=== PATIENT | female | born 1995 | race Two or more races ===

== ENCOUNTER 2021-05-06 16:54 | Emergency (ER) | payer OTHER ==
[~2021-05-06] VITALS: Ht 149.9 cm; Wt 50.0 kg
[2021-05-06] MEDS ORDERED: ACETAMINOPHEN 500 MG TABLET PO ONE (20:45)
[2021-05-06] MEDS ORDERED: IV NORMAL SALINE 1000ML BAG 1,000 ML IV ONE (20:45)
[2021-05-06 21:05] LABS: BILIRUBIN,URINE SMALL (NEG); CLARITY,URINE CLEAR; COLOR,URINE YELLOW
[2021-05-06 21:06] LABS: NITRITE,URINE NEGATIVE (NEG); PH,URINE 8.5 (<5.0-8.0); PROTEIN,URINE 30 mg/dL (NEG-TRACE)
[2021-05-06 21:08] LABS: BACTERIA,URINE 0 /HPF (0-FEW)
[2021-05-06 21:11] LABS: BASO % 0 % (0-3); EOS % 0 % (0-3); HEMOGLOBIN 14.4 g/dL (12.0-15.5); LYMPH % 9 % (24-48); MEAN CORPUSCULAR HEMOGLOBIN 30 pg (25-35); MEAN CORPUSCULAR HGB CONC 34 g/dL (31-37); MEAN CORPUSCULAR VOLUME 89 fL (79-100); MONO # 0.4 x10^3/uL (0.0-1.1); MONO % 4 % (0-9); NEUT # 10.2 x10^3/uL (1.8-7.7); NEUT % 87 % (31-73); PLATELET COUNT 197 x10^3/uL (140-400); RED BLOOD COUNT 4.73 x10^6/uL (3.50-5.40); RED CELL DISTRIBUTION WIDTH 12.4 % (11.5-14.5); WHITE BLOOD COUNT 11.7 x10^3/uL (4.0-11.0)
[2021-05-06 21:20] LABS: CALCIUM 9.2 mg/dL (8.5-10.1); CREATININE 0.8 mg/dL (0.6-1.0); GFR 88.1; POTASSIUM 3.4 mmol/L (3.5-5.1)
[2021-05-06 21:26] LABS: ALBUMIN 4.4 g/dL (3.4-5.0); TOTAL BILIRUBIN 2.8 mg/dL (0.2-1.0); TOTAL PROTEIN 8.6 g/dL (6.4-8.2)
--- NOTE | 2021-05-06 21:37 | PHYS DOC ---
Past Medical History Past Surgical History: No Surgical History (ESTEVANWOODROW Jackson BLOCK PILER) Smoking Status: Never Smoker Alcohol Use: Rarely (ESTEVANWOODROW Jackson BLOCK PILER) General Adult EDM: Chief Complaint: GI PROBLEM HPI: HPI: Patient is a 25 year old female presented to the ED today complaining of 5 out of 10 epigastric abdominal pain, lower abdominal pain, pain radiates to her lower back, and diarrhea, symptoms began today. Patient reports subjective fevers. Patient denies anything specifically exacerbating or relieving her pain. She states she tried [place] with no relief. (WOODROW ANGELES Morales BLOCK PILER) Review of Systems: Review of Systems: Constitutional: Denies fever or chills. [] Eyes: Denies change in visual acuity. [] HENT: Denies nasal congestion or sore throat. [] Respiratory: Denies cough or shortness of breath. [] Cardiovascular: Denies chest pain or edema. [] GI: Reports epigastric abdominal pain, lower abdominal pain, diarrhea denies nausea, vomiting, bloody stools : Denies dysuria. [] Musculoskeletal: Reports pain radiating to her back Integument: Denies rash. [] Neurologic: Denies headache, focal weakness or sensory changes. [] Psychiatric: Denies depression or anxiety. [] (BRIDGETTEWOODROW Nielsen BLOCK PILER) Heart Score: C/O Chest Pain: N/A Risk Factors: Risk Factors: DM, Current or recent (<one month) smoker, HTN, HLP, family history of CAD, obesity. Risk Scores: Score 0 - 3: 2.5% MACE over next 6 weeks - Discharge Home Score 4 - 6: 20.3% MACE over next 6 weeks - Admit for Clinical Observation Score 7 - 10: 72.7% MACE over next 6 weeks - Early Invasive Strategies (HUMBERTOWOODROW ALCANTAR BLOCK PILER) Current Medications: Current Medications Medications (Trade) Dose Ordered Sig/Mai Start Time Stop Time Status Last Admin Dose Admin Acetaminophen (Tylenol) 1,000 mg 1X ONCE 05/06/21 20:45 05/06/21 20:46 DC 05/06/21 21:01 1,000 MG Sodium Chloride 1,000 ml @ 1,000 mls/hr 1X ONCE 05/06/21 20:45 05/06/21 21:44 05/06/21 21:00 1,000 MLS/HR (WOODROW ANGELES BLOCK PILER) Allergies: Allergies: Allergies Coded Allergies Type Severity Reaction Last Updated Verified No Known Drug Allergies 05/06/21 No (WOODROW ANGELES BLOCK PILER) Physical Exam: PE: Constitutional: Well developed, well nourished, no acute distress, non-toxic appearance. [] HENT: Normocephalic, atraumatic, bilateral external ears normal, oropharynx moist, no oral exudates, nose normal. [] Eyes: PERRLA, EOMI, conjunctiva normal, no discharge. [] Neck: Normal range of motion, no tenderness, supple, no stridor. [] Cardiovascular:Heart rate regular rhythm, no murmur [] Lungs & Thorax: Bilateral breath sounds clear to auscultation [] Abdomen: Bowel sounds normal, soft, diffuse tenderness throughout the abdomen, no masses, no pulsatile masses. [] Skin: Warm, dry, no erythema, no rash. [] Back: No tenderness, no CVA tenderness. [] Extremities: No tenderness, no cyanosis, no clubbing, ROM intact, no edema. [] Neurologic: Alert and oriented X 3, normal motor function, normal sensory function, no focal deficits noted. [] Psychologic: Affect normal, judgement normal, mood normal. [] (WOODROW ANGELES BLOCK PILER) Current Patient Data: Labs: Laboratory Tests Test 05/06/21 20:45 05/06/21 20:51 05/06/21 21:05 Urine Collection Type Unknown Urine Color Yellow Urine Clarity Clear Urine pH 8.5 (<5.0-8.0) Urine Specific [place] 1.020 (1.000-1.030) Urine Protein 30 mg/dL (NEG-TRACE) Urine Glucose (UA) Negative mg/dL (NEG) Urine Ketones (Stick) >160 mg/dL (NEG) Urine Blood Trace (NEG) Urine Nitrite Negative (NEG) Urine Bilirubin Small (NEG) Urine Urobilinogen Dipstick 1.0 mg/dL (0.2 mg/dL) Urine Leukocyte Esterase Negative (NEG) Urine RBC 3-5 /HPF (0-2) Urine WBC 1-4 /HPF (0-4) Urine Squamous Epithelial Cells Many /LPF Urine Bacteria 0 /HPF (0-FEW) Urine Mucus Marked /LPF POC Urine HCG, Qualitative Hcg negative (Negative) White Blood Count 11.7 x10^3/uL (4.0-11.0) H Red Blood Count 4.73 x10^6/uL (3.50-5.40) Hemoglobin 14.4 g/dL (12.0-15.5) Hematocrit 42.0 % (36.0-47.0) Mean Corpuscular Volume 89 fL (79-100) Mean Corpuscular Hemoglobin 30 pg (25-35) Mean Corpuscular Hemoglobin Concent 34 g/dL (31-37) Red Cell Distribution Width 12.4 % (11.5-14.5) Platelet Count 197 x10^3/uL (140-400) Neutrophils (%) (Auto) 87 % (31-73) H Lymphocytes (%) (Auto) 9 % (24-48) L Monocytes (%) (Auto) 4 % (0-9) Eosinophils (%) (Auto) 0 % (0-3) Basophils (%) (Auto) 0 % (0-3) Neutrophils # (Auto) 10.2 x10^3/uL (1.8-7.7) H Lymphocytes # (Auto) 1.0 x10^3/uL (1.0-4.8) Monocytes # (Auto) 0.4 x10^3/uL (0.0-1.1) Eosinophils # (Auto) 0.0 x10^3/uL (0.0-0.7) Basophils # (Auto) 0.0 x10^3/uL (0.0-0.2) Sodium Level 136 mmol/L (136-145) Potassium Level 3.4 mmol/L (3.5-5.1) L Chloride Level 99 mmol/L (98-107) Carbon Dioxide Level 25 mmol/L (21-32) Anion Gap 12 (6-14) Blood Urea Nitrogen 9 mg/dL (7-20) Creatinine 0.8 mg/dL (0.6-1.0) Estimated GFR (Cockcroft-Gault) 88.1 BUN/Creatinine Ratio 11 (6-20) Glucose Level 99 mg/dL (70-99) Calcium Level 9.2 mg/dL (8.5-10.1) Total Bilirubin 2.8 mg/dL (0.2-1.0) H Aspartate Amino Transferase (AST) 46 U/L (15-37) H Alanine Aminotransferase (ALT) 89 U/L (14-59) H Alkaline Phosphatase 78 U/L (46-116) Total Protein 8.6 g/dL (6.4-8.2) H Albumin 4.4 g/dL (3.4-5.0) Albumin/Globulin Ratio 1.0 (1.0-1.7) Lipase 50 U/L (73-393) L Laboratory Tests 05/06/21 21:05 Laboratory Tests 05/06/21 21:05 Vital Signs: Vital Signs Date Time Temp Pulse Resp B/P (MAP) Pulse Ox O2 Delivery O2 Flow Rate FiO2 05/06/21 21:04 84 16 121/58 (79) 100 Room Air 05/06/21 18:35 100.4 100.4 (WOODROW ANGELES BLOCK PILER) EKG: EKG: [] (WOODROW ANGELES BLOCK PILER) Radiology/Procedures: Radiology/Procedures: []PROCEDURE: CT ABD PELV W/ IV CONTRST ONLY INDICATION: Reason: abd pain;OMNI 300,75ML / Spl. Instructions: / History: COMPARISON: None. TECHNIQUE: Axial CT images were obtained through the abdomen and pelvis with intravenous contrast. One or more of the following individualized dose reduction techniques were utilized for this examination: 1. Automated exposure control; 2. Adjustment of the mA and/or kV according to patient size; 3. Use of iterative reconstruction technique. FINDINGS: Vascular: No abdominal aortic aneurysm. Hepatobiliary: Liver appears mildly low density. Nonspecific but can be seen with mild fatty infiltration. Pancreas: No peripancreatic edema. Spleen: Spleen is prominent in size. Renal/Bladder: No hydronephrosis. Gastrointestinal: Intrauterine device is seen of the uterus. Small free fluid in the pelvis. Low-density left adnexa measuring up to approximately 32 mm. Limited visualization of the appendix secondary to unopacified loops of small bowel within the right lower quadrant. No definite inflammatory changes are seen within the area. Degenerative changes of the spine with some disc protrusions and osteophyte formation. IMPRESSION: * No evidence of bowel obstruction. * Suspected low density lesion of the left adnexa which could be from a left adnexal cystic lesion. If further information is needed ultrasound could further assess. Electronically signed by: Batool Oscar MD (05/06/2021 11:19 PM) [id number] DICTATED and SIGNED BY: BATOOL OSCAR MD DATE: 05/06/21 [id number] 0 (WOODROW ANGELES APRN) Course & Med Decision Making: Course & Med Decision Making Pertinent Labs and Imaging studies reviewed. (See chart for details) This is a 25-year-old female patient presented to the ED today with complaints of diarrhea, lower abdominal pain radiating to the back, epigastric pain, symptoms began today. Also complaining of fevers Vitals on arrival to the ED temperature 100.4, heart rate 110, respiration 20 on room air, blood pressure 109/56, O2 sats 100% Negative urine hCG. CBC with a WBC of 11.7, CMP with bilirubin of 2.8, AST 46, ALT 89, UA negative for infection noted for small amount of bilirubin, >160 ketones. Patient was given IV fluids in the ED as well as Tylenol CT of the abdomen and pelvis was noted for suspected low density lesion of the left adnexa which could be from a left adnexal cystic lesion. If further information is needed ultrasound could further assess. Pelvic ultrasound as well as limited right upper quadrant ultrasound was done, ultrasound noted for left adnexal cyst otherwise no acute findings. Instructed to follow-up with OB for this. (WOODROW ANGELES APRN) Course & Med Decision Making Patients Care and treatment plan provided by ER Nurse Practitioner. I was not involved in this patients care but was available for consult. Patient's chart reviewed. (TANGELA JOHNSON DO) Estelle Disclaimer: Estelle Disclaimer: This electronic medical record was generated, in whole or in part, using a voice recognition dictation system. (WOODROW ANGELES APRN) Departure Departure Impression: Primary Impression: Abdominal pain Qualified Codes: R10.32 - Left lower quadrant pain Additional Impressions: Fever Qualified Codes: R50.9 - Fever, unspecified Pelvic cyst Diarrhea Qualified Codes: R19.7 - Diarrhea, unspecified Disposition: 01 HOME / SELF CARE / HOMELESS Condition: STABLE Referrals: NO PCP (PCP) ARTI WALKER MD follow up in one week Patient Instructions: Diarrhea, [id number], Fever, Adult Additional Instructions: You were evaluated in the emergency room for abdominal pain, you had a slight fever in the ED. Your CT of the abdomen and pelvis as well as ultrasound of the pelvis was noted for a cyst in your left pelvic region. Please follow-up with your own SCREW DOWN or the provided SCREW DOWN in one week. Please take Tylenol Motrin for pain or fever, push fluids, take the prescribed medicine for the pain in your stomach. Come back to the ED at any point symptoms worsen Scripts Loperamide Hcl (ULTRA A-D) 2 Mg Tablet 2 MG PO Q8HRS PRN for DIARRHEA, #10 TAB Prov: WOODROW ANGELES APRN 05/07/21 Dicyclomine Hcl (DICYCLOMINE HCL) 20 Mg Tablet 1 TAB PO TID, #30 TAB 1 Refill Prov: WOODROW ANGELES APRN 05/07/21 WOODROW ANGELES APRN May 06, 2021 21:37 TANGELA JOHNSON I DO May 07, 2021 18:10
[2021-05-06] MEDS ORDERED: CONTRAST GIVEN. MC PRN (21:45)
[2021-05-06] MEDS ORDERED: IOHEXOL 300 MG/ML 100ML VIAL. IV ONE (21:45)
[2021-05-06 22:36] LABS: INFLUENZA A PATIENT NEGATIVE (NEGATIVE); INFLUENZA B PATIENT NEGATIVE (NEGATIVE)
--- NOTE | 2021-05-06 23:21 | RAD ---
INDICATION: Reason: abd pain;OMNI 300,75ML / Spl. Instructions: / History: COMPARISON: None. TECHNIQUE: Axial CT images were obtained through the abdomen and pelvis with intravenous contrast. One or more of the following individualized dose reduction techniques were utilized for this examinat ion: 1. Automated exposure control; 2. Adjustment of the mA and/or kV according to patient size; 3 . Use of iterative reconstruction technique. FINDINGS: Vascular: No abdominal aortic aneurysm. Hepatobiliary: Liver appears mildly low density. Nonspecific but can be seen with mild fatty infiltra tion. Pancreas: No peripancreatic edema. Spleen: Spleen is prominent in size. Renal/Bladder: No hydronephrosis. Gastrointestinal: Intrauterine device is seen of the uterus. Small free fluid in the pelvis. Low-dens ity left adnexa measuring up to approximately 32 mm. Limited visualization of the appendix secondary to unopacified loops of small bowel within the right lower quadrant. No definite inflammatory changes are seen within the area. Degenerative changes of the spine with some disc protrusions and osteophyte formation. IMPRESSION: * No evidence of bowel obstruction. * Suspected low density lesion of the left adnexa which could be from a left adnexal cystic lesion. If further information is needed ultrasound could further assess. Electronically signed by: Danny Guido MD (05/06/2021 11:19 PM) [id number]
[2021-05-07] VITALS: BP 96/55
[2021-05-07] MEDS ORDERED: DICY20TA PO (00:17)
[2021-05-07] MEDS ORDERED: LOPE2TAB PO (00:17)
--- NOTE | 2021-05-07 00:50 | RAD ---
EXAMINATION: US ABDOMEN LIMITED INDICATION: 25 years, Female, abdominal pain, elevated liver enzymes. COMPARISON: None TECHNIQUE: Grayscale, color Doppler and limited spectral Doppler images of the right upper quadrant w ere obtained. FINDINGS: LIVER: SIZE (LENGTH): 14 cm. ECHOGENICITY: Normal. PARENCHYMA: Homogeneous echotexture. No discrete focal lesion. INTRAHEPATIC BILE DUCTS: Nondilated. PORTAL VEIN: Patent with normal hepatopedal flow. GALLBLADDER: GALLBLADDER WALL THICKNESS: 2.2 mm. MORPHOLOGY: Normal morphology. No pericholecystic free fluid. LUMEN: Normal. COMMON BILE DUCT DIAMETER: Not visualized. RIGHT KIDNEY: MEASURES: 10.8 cm in length. MORPHOLOGY/PARENCHYMA: Normal corticomedullary differentiation with no shadowing calculus or discrete masses. COLLECTING SYSTEM: No hydronephrosis. PANCREAS: VISUALIZED PORTIONS: Proximal body. APPEARANCE: Within normal limits. OTHER: RETROPERITONEUM, INFERIOR VENA CAVA: Normal caliber. AORTA: Not visualized. FLUID:No free fluid. IMPRESSION: Unremarkable right upper abdomen ultrasound. Electronically signed by: Paresh Hanson MD (05/07/2021 12:48 AM) [facility]
--- NOTE | 2021-05-07 00:54 | RAD ---
EXAMINATION: US TRANSVAGINAL INDICATION: 25 years, Female, left adnexa cyst seen on CT exam. Further evaluation. COMPARISON: 05/06/2021 TECHNIQUE: Transvaginal ultrasound of the pelvis was performed with grayscale, spectral, and color do ppler imaging. FINDINGS: UTERUS: Position: Retroverted. Measures: 7.4 x 3.2 x 5.5 cm. Uterine/Endometrial Morphology: Intrauterine contraceptive device in place. Endometrial Thickness: IUD. RIGHT OVARY/ADNEXA: Measures: 2.5 x 1.7 x 1.5 cm. Ovarian Morphology: Unremarkable. Ovarian Color And Spectral Doppler Flow: Normal. LEFT OVARY/ADNEXA: Measures: 2.9 x 2.6 x 2.3 cm. Ovarian Morphology: There is a 2.1 x 1.8 cm simple appearing cyst. Ovarian Color And Spectral Doppler Flow: Normal. OTHER: Fluid/Cul-De-Sac: None. IMPRESSION: 1. Simple 2.5 cm left ovarian cyst. No follow-up is required. 2. Intrauterine contraceptive device is in place. Electronically signed by: Paresh Hanson MD (05/07/2021 12:51 AM) [facility]
== END 2021-05-07 00:31 | disposition home or self-care (01) ==
LOC: ER 16:54
DX: R10.13 Epigastric pain (principal); Z20.822 Contact with and (suspected) exposure to COVID-19; R10.32 Left lower quadrant pain; R50.9 Fever, unspecified; N94.89 Other specified conditions associated with female genital organs and menstrual cycle; R19.7 Diarrhea, unspecified
CPT/HCPCS: 36415; 74177; 76705; 76830; 80053; 81001; 81025; 83690; 85025; 87428; 96360; 96361; 99285; C9803; J7030; Q9967; U0003